=== PATIENT | female | born 1980 | race African-American/Black ===

== ENCOUNTER 2017-07-20 17:27 | Emergency (ER) | payer OTHER ==
[~2017-07-20] VITALS: Ht 160 cm; Wt 83.9 kg
[~2017-07-20 17:27] MED LIST: BENTYL 20 MG TA20 M1 PO; CITRATE OF MAG296 ML PO; LEVOTHYROXIN0.075 MG PO; PRILOSEC 10MG C10 MG PO; SENOKOT-S1 TA1 PO; VICTOZA0.6 MG/0.1 SUBQ
[2017-07-20] MEDS ORDERED: ZOLPIDEM TARTRA10 MG PO (17:36)
[2017-07-20] MEDS ORDERED: TRAMADOL 50 MG50 MG PO (18:56)
[2017-07-20] MEDS ORDERED: IBUPROFEN 800800 M1 PO (18:56)
[2017-07-20 19:15] VITALS: BP 145/91
== END 2017-07-20 19:22 | disposition home or self-care (01) ==
LOC: ER 17:27
DX: S93.401A Sprain of unspecified ligament of right ankle, initial encounter (principal); F10.99 Alcohol use, unspecified with unspecified alcohol-induced disorder; Z88.0 Allergy status to penicillin; W18.49XA Other slipping, tripping and stumbling without falling, initial encounter; Y93.89 Activity, other specified; Y92.89 Other specified places as the place of occurrence of the external cause; Y99.8 Other external cause status